=== PATIENT | male | born 1955 | race Caucasian/White ===

== ENCOUNTER → 2024-06-22 08:44 | Outpatient (REF) | payer BC, SELFPAY | LOC: RAD 08:44 | PROVIDERS: ATTENDING PHYSICIAN Otolaryngology; FAMILY PHYSICIAN Family Medicine | DX: K11.21 Acute sialoadenitis (principal); K22.0 Achalasia of cardia | CPT/HCPCS: 70492; Q9967 ==

== ENCOUNTER → 2024-10-08 07:59 | Outpatient (REF) | payer BC, SELFPAY ==
[2024-10-08 08:45] VITALS: BP 160/81; BP_SYST 65; BMI 32.3
[2024-10-08] MEDS: ANCEF 10 IV (09:27)
[2024-10-08 10:20] VITALS: BP 160/70; BP_SYST 64
[2024-10-08 10:25] VITALS: BP 148/89
== END ==
LOC: RADI 07:59
PROVIDERS: ATTENDING PHYSICIAN Internal Medicine Hematology & Oncology; FAMILY PHYSICIAN Family Medicine
DX: C82.11 Follicular lymphoma grade II, lymph nodes of head, face, and neck (principal)
CPT/HCPCS: 36561; 76937; 77001; 99152; 99153; C1788

== ENCOUNTER → 2024-10-13 10:03 | Outpatient (REF) | payer BC, SELFPAY ==
[2024-10-13 10:31] LABS: Hematocrit 43.8 % (39.0-52.0); Hemoglobin 14.5 g/dL (13.0-18.0); Mean Corp Hgb Conc. 33.1 g/dL (33.0-37.0); Mean Corpuscular Volume 87.6 fL (80.0-94.0); Nucleated Red Blood Cells % 0 % (-); Platelet Count 213 10^3/uL (130-400); Red Cell Dist. Width 14.3 % (11.5-14.5)
[2024-10-13 11:15] LABS: ALT (SGPT) 33 U/L (0-50); AST (SGOT) 29 U/L (17-59); Albumin 4.3 g/dl (3.5-5.0); Alkaline Phosphatase 65 U/L (38-126); Blood Urea Nitrogen 23 mg/dl (9-20); Calcium 9.1 mg/dl (8.4-10.2); Carbon Dioxide 32 mmol/L (22-30); Chloride 99 mmol/L (98-107); Glucose 116 mg/dl (70-99); Potassium 4.7 mmol/L (3.5-5.1); Sodium 137 mmol/L (135-145); Total Protein 6.7 g/dl (6.3-8.2); eGFR > 60.00
== END ==
LOC: REG 10:03
PROVIDERS: ATTENDING PHYSICIAN Internal Medicine Hematology & Oncology; FAMILY PHYSICIAN Family Medicine
DX: C82.11 Follicular lymphoma grade II, lymph nodes of head, face, and neck (principal)
CPT/HCPCS: 36415; 80053; 85025

== ENCOUNTER → 2024-11-12 13:49 | Outpatient (REF) | payer BC, SELFPAY ==
[2024-11-12 15:53] LABS: ALT (SGPT) 31 U/L (0-50); AST (SGOT) 28 U/L (17-59); Albumin 4.3 g/dl (3.5-5.0); Alkaline Phosphatase 65 U/L (38-126); Blood Urea Nitrogen 27 mg/dl (9-20); Calcium 9.0 mg/dl (8.4-10.2); Carbon Dioxide 31 mmol/L (22-30); Chloride 104 mmol/L (98-107); Glucose 88 mg/dl (70-99); Potassium 4.4 mmol/L (3.5-5.1); Sodium 142 mmol/L (135-145); Total Protein 6.9 g/dl (6.3-8.2); eGFR > 60.00
[2024-11-12 15:58] LABS: Hematocrit 41.0 % (39.0-52.0); Hemoglobin 13.5 g/dL (13.0-18.0); Mean Corp Hgb Conc. 32.9 g/dL (33.0-37.0); Mean Corpuscular Volume 87.6 fL (80.0-94.0); Nucleated Red Blood Cells % 0 % (-); Red Cell Dist. Width 14.0 % (11.5-14.5)
[2024-11-12 20:00] LABS: Platelet Count 227 10^3/uL (130-400)
== END ==
LOC: REG 13:49
PROVIDERS: ATTENDING PHYSICIAN Internal Medicine Hematology & Oncology; FAMILY PHYSICIAN Family Medicine
DX: C82.11 Follicular lymphoma grade II, lymph nodes of head, face, and neck (principal)
CPT/HCPCS: 36415; 80053; 85025

== ENCOUNTER → 2024-12-10 13:33 | Outpatient (REF) | payer BC, SELFPAY ==
[2024-12-10 15:14] LABS: Hematocrit 40.7 % (39.0-52.0); Hemoglobin 13.5 g/dL (13.0-18.0); Mean Corp Hgb Conc. 33.2 g/dL (33.0-37.0); Mean Corpuscular Volume 89.1 fL (80.0-94.0); Nucleated Red Blood Cells % 0 % (-); Platelet Count 334 10^3/uL (130-400); Red Cell Dist. Width 14.8 % (11.5-14.5)
[2024-12-10 16:40] LABS: ALT (SGPT) 31 U/L (0-50); AST (SGOT) 28 U/L (17-59); Albumin 4.3 g/dl (3.5-5.0); Alkaline Phosphatase 58 U/L (38-126); Blood Urea Nitrogen 19 mg/dl (9-20); Calcium 9.0 mg/dl (8.4-10.2); Carbon Dioxide 29 mmol/L (22-30); Chloride 105 mmol/L (98-107); Glucose 77 mg/dl (70-99); Potassium 4.1 mmol/L (3.5-5.1); Sodium 142 mmol/L (135-145); Total Protein 6.9 g/dl (6.3-8.2); eGFR > 60.00
== END ==
LOC: REG 13:33
PROVIDERS: ATTENDING PHYSICIAN Internal Medicine Hematology & Oncology; FAMILY PHYSICIAN Family Medicine
DX: C82.11 Follicular lymphoma grade II, lymph nodes of head, face, and neck (principal)
CPT/HCPCS: 36415; 80053; 85025

== ENCOUNTER → 2025-01-07 13:56 | Outpatient (REF) | payer BC, SELFPAY ==
[2025-01-07 16:18] LABS: Hematocrit 39.7 % (39.0-52.0); Hemoglobin 13.1 g/dL (13.0-18.0); Mean Corp Hgb Conc. 33.0 g/dL (33.0-37.0); Mean Corpuscular Volume 91.3 fL (80.0-94.0); Nucleated Red Blood Cells % 0 % (-); Platelet Count 229 10^3/uL (130-400); Red Cell Dist. Width 14.6 % (11.5-14.5)
[2025-01-07 16:38] LABS: ALT (SGPT) 32 U/L (0-50); AST (SGOT) 29 U/L (17-59); Albumin 4.1 g/dl (3.5-5.0); Alkaline Phosphatase 61 U/L (38-126); Blood Urea Nitrogen 22 mg/dl (9-20); Calcium 8.8 mg/dl (8.4-10.2); Carbon Dioxide 32 mmol/L (22-30); Chloride 101 mmol/L (98-107); Glucose 93 mg/dl (70-99); Potassium 4.2 mmol/L (3.5-5.1); Sodium 139 mmol/L (135-145); Total Protein 6.6 g/dl (6.3-8.2); eGFR > 60.00
== END ==
LOC: REG 13:56
PROVIDERS: ATTENDING PHYSICIAN Internal Medicine Hematology & Oncology; FAMILY PHYSICIAN Family Medicine
DX: C82.11 Follicular lymphoma grade II, lymph nodes of head, face, and neck (principal)
CPT/HCPCS: 36415; 80053; 85025